=== PATIENT | male | born 1975 | race Caucasian/White ===

== ENCOUNTER 2018-05-01 18:35 | Emergency (ER) | payer OTHER ==
[2018-05-01] MEDS ORDERED: Ondansetron HCl/PF 4 MG/2 ML Vial ONE (18:44)
[2018-05-01] MEDS ORDERED: Sodium Chloride 0.9% 1,000 ML ONE ×2 (18:44→20:23)
[2018-05-01] MEDS ORDERED: Ketorolac Tromethamine 30 MG/ML VIAL ONE (18:44)
[2018-05-01] MEDS ORDERED: Acetaminophen 500 MG TAB ONE (19:03)
[2018-05-01 19:36] LABS: Hemoglobin 15.9 g/dL (14.0-18.0); Mean Corpuscular Hemoglobin 30.5 pg (27.0-31.0); Mean Corpuscular Volume 91.4 fL (78.0-98.0); Red Blood Cell (RBC) Count 5.21 mill/uL (4.70-6.10); White Blood Cell (WBC) Count 4.9 thou/uL (4.8-10.8)
[2018-05-01 19:37] LABS: #Lymphocytes 1.5 thou/uL (1.20-3.40); #Monocytes 0.4 thou/uL (0.11-0.59); #Neutrophils 2.9 thou/uL (1.40-6.50); %Basophils 0.9 % (0.0-1.0); %Eosinophils 0.5 % (0.0-10.0); %Lymphocytes 31.3 % (21.0-51.0); %Monocytes 7.2 % (0.0-10.0); %Neutrophils 60.2 % (42.0-75.0); Mean Corpuscular HGB CONC 33.3 g/dL (32.0-36.0); Mean Platelet Volume 9.2 fL (7.4-10.4); Platelet Count 150 thou/uL (130-400); RBC Distribution Width 11.1 % (11.5-14.5)
[2018-05-01 19:40] LABS: CKMB 1.2 ng/mL (0-6.6); Troponin I Less than 0.010 ng/mL (< 0.028)
[2018-05-01 19:44] LABS: ALT (SGPT) 65 U/L (8-55); AST (SGOT) 41 U/L (5-34); Albumin 4.4 g/dL (3.5-5.0); Alkaline Phosphatase 114 U/L (40-150); Anion Gap 15 mmol/L (10-20); BUN (Urea Nitrogen) 7 mg/dL (8.9-20.6); Calc. Creatinine Clearance 0 mL/min (70-130); Calcium 9.4 mg/dL (7.8-10.44); Carbon Dioxide 24 mmol/L (22-29); Chloride 98 mmol/L (98-107); Estimated GFR-MDRD 57; Globulin 3.4 g/dL (2.4-3.5); Glucose 260 mg/dL (70-105); Potassium 3.7 mmol/L (3.5-5.1); Protein, Total 7.8 g/dL (6.0-8.3); Sodium 133 mmol/L (136-145)
--- NOTE | 2018-05-01 20:08 | RAD ---
PORTABLE CHEST: 05/01/18 HISTORY: Shortness of breath. Dyspnea. Heart size and mediastinum are within normal limits. The lungs are clear of focal infiltrates. There are no significant bony findings. IMPRESSION: No active intrathoracic disease. POS: [id number]
== END 2018-05-01 21:47 | disposition home or self-care (01) ==
LOC: NAV ERS 18:35
DX: B34.9 Viral infection, unspecified (principal); E11.9 Type 2 diabetes mellitus without complications; G43.909 Migraine, unspecified, not intractable, without status migrainosus; F17.210 Nicotine dependence, cigarettes, uncomplicated
CPT/HCPCS: 71045; 80053; 82553; 83605; 83880; 84484; 85025; 87040; 87804; 93005; 94640; 96361; 96374; 96375; 99406; J1885; J2405; J7050; J7620

== ENCOUNTER 2018-06-10 15:34 | Emergency (ER) | payer OTHER ==
[2018-06-10] MEDS ORDERED: Lidocaine 1% (PF) 30 ML VIAL ONE (16:11)
[2018-06-10] MEDS ORDERED: Sulfameth/Trimethoprim DS 800-160mg TAB ONE (16:35)
== END 2018-06-10 16:44 | disposition home or self-care (01) ==
LOC: NAV ERS 15:34
DX: L02.214 Cutaneous abscess of groin (principal); E11.9 Type 2 diabetes mellitus without complications; G43.909 Migraine, unspecified, not intractable, without status migrainosus; F17.210 Nicotine dependence, cigarettes, uncomplicated
CPT/HCPCS: 10061; 36416; 87070; 87077; 87205; J2001

== ENCOUNTER 2018-06-12 15:22 | Emergency (ER) | payer OTHER | END 2018-06-12 15:53 | disposition home or self-care (01) | LOC: NAV ERS 15:22 | DX: Z48.817 Encounter for surgical aftercare following surgery on the skin and subcutaneous tissue (principal); E11.9 Type 2 diabetes mellitus without complications; G43.909 Migraine, unspecified, not intractable, without status migrainosus; F17.210 Nicotine dependence, cigarettes, uncomplicated; Z79.899 Other long term (current) drug therapy | CPT/HCPCS: 99282 ==

== ENCOUNTER 2018-06-14 15:04 | Emergency (ER) | payer OTHER | END 2018-06-14 15:32 | disposition home or self-care (01) | LOC: NAV ERS 15:04 | DX: Z48.817 Encounter for surgical aftercare following surgery on the skin and subcutaneous tissue (principal); E11.9 Type 2 diabetes mellitus without complications; G43.909 Migraine, unspecified, not intractable, without status migrainosus; F17.210 Nicotine dependence, cigarettes, uncomplicated; Z79.899 Other long term (current) drug therapy | CPT/HCPCS: 99282 ==